=== PATIENT | male | born 1990 | race Caucasian/White ===

== ENCOUNTER 2020-02-03 21:40 | Emergency (ER) | payer SELFPAY ==
[~2020-02-03] VITALS: Ht 175.3 cm; Wt 90.7 kg
[2020-02-03 21:44] VITALS: BP 152/90
--- NOTE | 2020-02-03 21:53 | NUR ---
PT TAKEN TO BED 3
[2020-02-03] MEDS ORDERED: KETOROLAC 30 MG/ML VIAL IVP ONE (22:00)
[2020-02-03] MEDS ORDERED: NACL 0.9% 1,000 ML IV ONE (22:00)
--- NOTE | 2020-02-03 22:00 | NUR ---
Dr. Callejas examining patient.
--- NOTE | 2020-02-03 22:23 | NUR ---
29 Y/O M PRESENTS TO ED C/O HEADACHE AND FEELING OF FATIGUE X 3 DAYS. DESCRIBES PAIN TO BE INTERMITTENT; RATING 3/10. PT STATES HE WAS RECENTLY DIAGNOSED WITH DIABETES AND IS PRESCRIBED METFORMIN, WHICH HE TAKES PRESCRIBED. BS DURING TRIAGE AT 262. PT DENIES N/V/D. VSS. BED LOCKED AND IN LOWEST POSITION, SIDE RAIL UPX1. WILL CONTINUE TO MONITOR. MHX: DIABETES NKA
[2020-02-04 00:13] VITALS: BP 152/90
== END 2020-02-03 23:18 | disposition home or self-care (01) ==
LOC: MED 21:40
DX: R51 Headache (principal); R53.1 Weakness; E11.9 Type 2 diabetes mellitus without complications
CPT/HCPCS: 96361; 96374; 99283; J1885; J7030